=== PATIENT | female | born 1960 | race Caucasian/White ===

== ENCOUNTER 2021-10-24 00:44 | Inpatient (IN) | payer OTHER ==
[~2021-10-24] VITALS: Ht 154.9 cm; Wt 49.4 kg
--- NOTE | 2021-10-24 00:50 | NUR ---
XRAY AT BEDSIDE
--- NOTE | 2021-10-24 01:20 | NUR ---
PT [id number] S/P FALL C/O OF SEVERE PAIN LEFT HIP. PER PT FELL GETTING UP FROM RESTROOM. PT ON MONITOR, REMAINS IN BED 2
--- NOTE | 2021-10-24 01:25 | NUR ---
PT IS ESRD ON DIALYSIS MWF. HD ACCESS NOTED ON RIGHT THIGH. PT HAS OLD HD ACESS, NURY
[2021-10-24] MEDS ORDERED: MORPHINE SULFATE INJ 2 MG/ML DISP.SYRIN IM ONE (01:30)
--- NOTE | 2021-10-24 01:30 | NUR ---
XRAY AT BEDSIDE
[2021-10-24] MEDS ORDERED: MORPHINE SULFATE INJ 4 MG/ML DISP.SYRIN ONE ×2 (01:47→05:29)
--- NOTE | 2021-10-24 02:02 | NUR ---
LEFT WRIST #20 ESTABLISHED
[2021-10-24 02:56] LABS: BASOPHILS % (AUTO) 0.4 % (0.0-2.0); EOSINOPHILS % (AUTO) 0.4 % (0.0-6.0); HEMATOCRIT 35 % (33-45); HEMOGLOBIN 11.9 g/dL (11.5-14.8); LYMPHOCYTES # (AUTO) 0.5 K/uL (0.8-4.8); MEAN CORPUSCULAR HGB CONC 34 g/dl (31.0-36.0); MEAN CORPUSCULAR VOLUME 98 fL (82-100); MONOCYTES # (AUTO) 0.2 K/uL (0.1-1.30); MONOCYTES % (AUTO) 3.7 % (2.0-12.0); NEUTROPHILS # (AUTO) 5.2 K/uL (1.8-8.9); NEUTROPHILS % (AUTO) 87.5 % (43.0-81.0); PLATELET COUNT (AUTO) 166 K/uL (150-450); RED BLOOD CELL COUNT(AUTO) 3.63 MIL/uL (4.0-5.2); WHITE BLOOD COUNT (AUTO) 5.9 K/uL (4.3-11.0)
[2021-10-24 03:23] LABS: CALCIUM, SERUM 9.5 mg/dL (8.5-10.1); CREATININE 5.8 mg/dL (0.6-1.3); POTASSIUM 5.1 mmol/L (3.5-5.1)
[2021-10-24 03:26] LABS: ALBUMIN 4.1 g/dL (3.4-5.0); BILIRUBIN,DIRECT 0.1 mg/dL (0.0-0.2); BILIRUBIN,TOTAL 0.4 mg/dL (0.2-1.0); TOTAL PROTEIN, SERUM 8.2 g/dL (6.4-8.2)
[2021-10-24] MEDS ORDERED: Z GUARD REMEDY 4 OZ OINT TP PRN (04:30)
[2021-10-24] MEDS ORDERED: ONDANSETRON HCL/PF 4 MG/2 ML VIAL IVP PRN (04:30)
[2021-10-24] MEDS: MORPHINE SULFATE INJ 2 MG/ML DISP.SYRIN IV PRN ×5 (05:30→23:42)
--- NOTE | 2021-10-24 06:27 | NUR ---
DAUGHTER WOULD LIKE TO BE INFORMED IF SX OCCURS. MIKI [phone] REQUESTS TO BE CALLED BEFORE ANY CONSENTS ARE SIGNED/PROCEDURES OCCUR
--- NOTE | 2021-10-24 07:38 | NUR ---
THE PATIENT IS RECEIVED IN ER BED #2. ALERT AND ORIENTED X4. IN ROOM AIR AND DENIES SOB. RESPIRATION REGULAR AND UNLABORED. CONTINUE TO MONITOR THE PATIENT.
[2021-10-24] MEDS ORDERED: CALC667C6 PO (08:01)
[2021-10-24] MEDS ORDERED: B/P MED (08:01)
--- NOTE | 2021-10-24 08:16 | NUR ---
NURSING SUP GAVE 324-1.
--- NOTE | 2021-10-24 08:16 | NUR ---
ROOM 324-1
--- NOTE | 2021-10-24 08:27 | NUR ---
REPORT GIVEN TO MYLES ROSE OF MS UNIT
--- NOTE | 2021-10-24 08:35 | NUR ---
PT TRANSPORTED TO ROOM [facility] ACLS PROTOCOL
--- NOTE | 2021-10-24 08:40 | NUR ---
Patient arrived via gurney at 08:40am, FROM er. Patient AO X 4, able to make needs known, can follow simple commands, no apparent distress noted, breathing even and unlabored. Admitting hospitalist made aware of the patient's arrival. Patient admitting diagnosis left femoral neck fracture. Patient's vital signs within normal limits, no complained of facial numbness or weakness, no extremity numbness or weakness at this time. Skin intact, warm to touch, no pallor or cyanosis noted. Patient was noted to have dialysis site on her right thigh, covered with dry dressings, no s/s of infection, no blood noted in the dressing, no unusual odor noted, also has old dialysis site on her right upper arm, patient preferred not to have photos taken at this time, explained risks and benefits thrice and explained hospital protocol, still refused, respected patient's wishes. Patient oriented with use of call lights, use of bed control, use of telephone and tv control, also introduces FIBER OPTIC ASSEMBLER and RN assigned for today, verbalized understanding and gratitude. All belongings written in the inventory list. All needs attended, kept clean and dry, call light left within reach, safety precautions in place, brakes locked, side rails up X 2, will monitor closely for any changes.
[2021-10-24] MEDS ORDERED: PANTOPRAZOLE 40 MG VIAL IV SCH (09:00)
--- NOTE | 2021-10-24 15:23 | NUR ---
Received a phone order from Dr. Dylan Moreno orders as follows: obtain a consent for left hip hemiarthroplasty possible open reduction internal fixation of left femur, resume renal diet and NPO post midnight of 10/25/21, orders noted and carried out, consents signed by patient and daughter, consents filed in the patient's chart.
[2021-10-24 16:13] VITALS: BP 136/70
[2021-10-24] MEDS: BLOOD SUGAR DIAGNOSTIC 1 EACH STRIP IN SCH ×2 (16:58→22:20)
--- NOTE | 2021-10-24 18:30 | NUR ---
MS RN NOTES RECEIVED PATIENT IN BED AWAKE. DAUGHTER BEDSIDE. NO PAIN NOTED. NO RESPIRATORY DISTRESS NOTED. ALERT AMND ORIENTED TIMES 4 . TRISTANIAN SPEAKING. LEFT HIP FRACTURE. IV ACCES ON THE LEFT HAND 20 INTACT. AV FISTULA ON THE RIGHT FEMORAL INTACT. SAFETY PRECAUTIONS IN PLACE. BED IN THE LOWEST POSITION AND LOCKED. SIDE RAILS TIMES 2 UP. BED AND TABLE WITHIN REACH. WILL CONTINUE TO MONITOR.
--- NOTE | 2021-10-24 18:44 | NUR ---
RN CLOSING NOTES Patient lying in bed, AO X 4, no SOB, breathing even and unlabored, no apparent distress noted. Pain medications given per MD order as needed when non pharmacological measures ineffective. Patient repositioned frequently, kept clean and dry, frequent visual check rendered, all needs attended, call light left within reach, safety precautions in place, brakes locked, side rails up X 2, will endorse to next shift for continuity of care.
[2021-10-24 20:00] VITALS: BP 139/72
[2021-10-25] MEDS: MORPHINE SULFATE INJ 2 MG/ML DISP.SYRIN IV PRN ×4 (05:43→19:37)
[2021-10-25] MEDS: BLOOD SUGAR DIAGNOSTIC 1 EACH STRIP IN SCH ×4 (05:47→22:17)
--- NOTE | 2021-10-25 06:27 | NUR ---
MS RN CLOSING NOTES PATIENT IN BED AWAKE. NO RESPIRATORY DISTRESS NOTED. ALERT AMND ORIENTED TIMES 4 . PALESTINIAN SPEAKING. LEFT HIP FRACTURE. IV ACCES ON THE LEFT HAND 20 INTACT. AV FISTULA ON THE RIGHT FEMORAL INTACT.ALL DUE MEDS GIVEN ORDERED. SAFETY PRECAUTIONS IN PLACE. BED IN THE LOWEST POSITION AND LOCKED. SIDE RAILS TIMES 2 UP. BED AND TABLE WITHIN REACH. WILL ENDORSE FOR ANDRES TO INCOMING SHIFT.
[2021-10-25 07:24] LABS: BASOPHILS % (AUTO) 0.5 % (0.0-2.0); EOSINOPHILS % (AUTO) 0.3 % (0.0-6.0); HEMATOCRIT 36 % (33-45); HEMOGLOBIN 11.8 g/dL (11.5-14.8); LYMPHOCYTES # (AUTO) 0.5 K/uL (0.8-4.8); LYMPHOCYTES % (AUTO) 10.4 % (20.0-44.0); MEAN CORPUSCULAR HGB CONC 33 g/dl (31.0-36.0); MEAN CORPUSCULAR VOLUME 97 fL (82-100); MONOCYTES # (AUTO) 0.5 K/uL (0.1-1.30); MONOCYTES % (AUTO) 10.4 % (2.0-12.0); NEUTROPHILS # (AUTO) 3.5 K/uL (1.8-8.9); NEUTROPHILS % (AUTO) 78.4 % (43.0-81.0); PLATELET COUNT (AUTO) 176 K/uL (150-450); RED BLOOD CELL COUNT(AUTO) 3.69 MIL/uL (4.0-5.2); WHITE BLOOD COUNT (AUTO) 4.5 K/uL (4.3-11.0)
--- NOTE | 2021-10-25 07:42 | NUR ---
RN OPENING NOTES Patient seen comfortably lying in bed, no SOB, no apparent distress noted, breathing even and unlabored, denies any pain or discomfort at this time, no grimacing. Call light left within reach, safety precautions in place, brakes locked, side rails up X 2, will monitor closely for any changes.
[2021-10-25 08:00] VITALS: BP 148/73
[2021-10-25] MEDS: PANTOPRAZOLE 40 MG TABLET.DR PO SCH (08:43)
[2021-10-25 09:01] LABS: ALBUMIN 3.8 g/dL (3.4-5.0); BILIRUBIN,TOTAL 0.7 mg/dL (0.2-1.0); CALCIUM, SERUM 10.1 mg/dL (8.5-10.1); CREATININE 4.1 mg/dL (0.6-1.3); MAGNESIUM 3.1 mg/dL (1.8-2.4); PHOSPHORUS 4.8 mg/dL (2.5-4.9); POTASSIUM 4.7 mmol/L (3.5-5.1); TOTAL PROTEIN, SERUM 8.1 g/dL (6.4-8.2)
[2021-10-25 16:00] VITALS: BP 144/76
--- NOTE | 2021-10-25 18:24 | NUR ---
RN CLOSING NOTES Patient lying in bed, no apparent distress noted, respirations even and unlabored, no SOB. All due medications given per MD order, tolerating well. No s/s of hypo or hyperglycemia, no tremors, no change in level of consciousness. Pain medications given per MD order as needed when non pharmacological measures ineffective. SCD pumps in place and working well. Patient repositioned frequently, kept clean and dry, frequent visual check rendered, all needs attended, , safety precautions in place, brakes locked, side rails up X 2, call light left within reach will endorse to next shift for continuity of care.
[2021-10-25 20:59] VITALS: BP 146/75
[2021-10-26] MEDS: MORPHINE SULFATE INJ 2 MG/ML DISP.SYRIN IV PRN ×4 (04:58→21:13)
[2021-10-26] MEDS: BLOOD SUGAR DIAGNOSTIC 1 EACH STRIP IN SCH ×4 (06:48→22:32)
[2021-10-26 06:54] LABS: BASOPHILS % (AUTO) 0.6 % (0.0-2.0); EOSINOPHILS % (AUTO) 1.1 % (0.0-6.0); HEMATOCRIT 33 % (33-45); HEMOGLOBIN 11.2 g/dL (11.5-14.8); LYMPHOCYTES # (AUTO) 0.6 K/uL (0.8-4.8); LYMPHOCYTES % (AUTO) 14.6 % (20.0-44.0); MEAN CORPUSCULAR HGB CONC 34 g/dl (31.0-36.0); MEAN CORPUSCULAR VOLUME 96 fL (82-100); MONOCYTES # (AUTO) 0.4 K/uL (0.1-1.30); MONOCYTES % (AUTO) 11.1 % (2.0-12.0); NEUTROPHILS # (AUTO) 2.8 K/uL (1.8-8.9); NEUTROPHILS % (AUTO) 72.6 % (43.0-81.0); PLATELET COUNT (AUTO) 182 K/uL (150-450); RED BLOOD CELL COUNT(AUTO) 3.47 MIL/uL (4.0-5.2); WHITE BLOOD COUNT (AUTO) 3.8 K/uL (4.3-11.0)
--- NOTE | 2021-10-26 06:57 | NUR ---
RN NOTES PT AWAKE/ALERT, ABLE TO MAKE NEEDS KNOWN. NO ACUTE EVENTS DURING THE NIGHT. PAIN WELL CONTROLLED WITH PRN MORPHINE. IV ACCESS: L-WRIST #20G INTACT/PATENT/FLUSHES WELL. HD ACCESS ON R-THIGH WITH GOOD BRUIT AND THRILL. HANDLED PT GENTLY DURING CARE. SAFETY MEASURES IN PLACE. ALL NEEDS ATTENDED TO.
[2021-10-26 07:25] LABS: CREATININE 5.5 mg/dL (0.6-1.3); MAGNESIUM 3.1 mg/dL (1.8-2.4); PHOSPHORUS 5.6 mg/dL (2.5-4.9); POTASSIUM 5.3 mmol/L (3.5-5.1)
[2021-10-26] MEDS: PANTOPRAZOLE 40 MG TABLET.DR PO SCH (07:29)
--- NOTE | 2021-10-26 07:30 | NUR ---
MS RN OPENING NOTES RECEIVED PATIENT IN BED, AWAKE, NOT IN ANY FORM OF ACUTE DISTRESS NOTED. ON ROOM AIR TOLERATING WELL. IV ACCESS ON LEFT WRIST G#20, PATENT, INTACT NAD FLUSHES WELL. WITH HD CATH SITE NOTED ON RIGHT THIGH COVERED WITH DRY AND INTACT DRESSING. NOTED WITH NURY OLD AV SHUNT. SAFETY PRECAUTIONS IN PLACE: BED ON LOWEST LOCKED POSITION, SIDE RAILS UP X 2, CALL LIGHT WITHIN EASY REACH. WILL CONTINUE TO MONITOR ACCORDINGLY.
[2021-10-26 08:00] VITALS: BP 141/79
[2021-10-26 08:48] VITALS: BP 146/79
[2021-10-26] MEDS: ENOXAPARIN SODIUM 30 MG/0.3 ML DISP.SYRIN SQ SCH (09:54)
--- NOTE | 2021-10-26 11:22 | NUR ---
RN NOTES PATIENT HAS C/O LEFT HIP PAIN WITH PAIN SCALE OF 9/10. DUE MORPHINE GIVEN ORDERED.
[2021-10-26 15:49] VITALS: BP 150/75
--- NOTE | 2021-10-26 17:04 | NUR ---
RN NOTES S/P HEMODIALYSIS, PATIENT ABLE TO TOLERATE PROCEDURE WELL. WILL CONTINUE TO MONITOR.
--- NOTE | 2021-10-26 18:30 | NUR ---
MS RN CLOSING NOTES PATIENT IN BED, AWAKE, NOT IN ANY FORM OF ACUTE DISTRESS NOTED. ON ROOM AIR TOLERATING WELL. IV ACCESS ON LEFT WRIST G#20, PATENT, INTACT AND FLUSHES WELL. WITH HD CATH SITE NOTED ON RIGHT THIGH COVERED WITH DRY AND INTACT DRESSING. NOTED WITH NURY OLD AV SHUNT. SAFETY PRECAUTIONS IN PLACE: BED ON LOWEST LOCKED POSITION, SIDE RAILS UP X 2, CALL LIGHT WITHIN EASY REACH. DUE MEDS GIVEN ORDERED. ALL NEEDS ATTENDED AND MET. WILL ENDORSE TO ONCOMING SHIFT FOR ANDRES.
--- NOTE | 2021-10-26 19:45 | NUR ---
MS RN OPENING NOTE PATIENT AWAKE IN BED WITH DAUGHTER AT BEDSIDE, ALERT/ORIENTED X 4. PT STABLE ON RA, NO S/S OF DISTRESS OR SOB NOTED, BREATHING EVEN AND UNLABORED. IV ACCESS ON LEFT WRIST #20G INTACT AND FLUSHING WELL. HD CATH ON RIGHT THIGH NOTED, DRESSING CLEAN, DRY AND INTACT. NURY OLD AV SHUNT NOTED WELL. SAFETY MEASURES IN PLACE: CALL LIGHT WITHIN REACH, SIDE RAILS UP X 2, BED LOCKED IN LOW POSITION, BED ALARM ON. WILL CONTINUE TO MONITOR PATIENT
[2021-10-26 20:00] VITALS: BP 96/61
--- NOTE | 2021-10-26 21:15 | NUR ---
MS RN NOTE PATIENT REPORTING 9/10 LEFT HIP PAIN, MORPHINE 4 MG IV GIVEN ORDERED. WILL CONTINUE TO MONITOR PATIENT
[2021-10-27] MEDS: HYDROCODONE/APAP 5/325MG TABLET PO PRN ×2 (00:10→18:14)
--- NOTE | 2021-10-27 00:10 | NUR ---
MS RN NOTE PATIENT REPORTING 10/10 LEFT HIP PAIN EVEN THOUGH MORPHINE 4 MG IV ALREADY GIVEN AND NOT DUE YET. INFORMED SUMIT MEIER DNP, WITH NEW ORDER FOR NORCO 5-325 MG PO Q4H PRN. MEDICATION GIVEN ORDERED. WILL CONTINUE TO MONITOR PATIENT
[2021-10-27] MEDS: MORPHINE SULFATE INJ 2 MG/ML DISP.SYRIN IV PRN ×4 (02:10→20:21)
--- NOTE | 2021-10-27 03:54 | NUR ---
MS RN NOTE EARL FROM [facility] CALLED TO CONFIRM IF PATIENT STILL NEEDED HIGHER LEVEL OF CARE. PER EARL THERE ARE STILL NO AVAILABLE BEDS AND PATIENT NEEDS TO GET FINANCIAL CLEARANCE AND AN ACCEPTING DOCTOR. PER EARL, SINCE IT'S THE WEEKEND FINANCIAL CLEARANCE CAN'T BE DONE UNTIL FRIDAY
[2021-10-27 07:32] LABS: BASOPHILS % (AUTO) 0.9 % (0.0-2.0); EOSINOPHILS % (AUTO) 1.5 % (0.0-6.0); HEMATOCRIT 33 % (33-45); HEMOGLOBIN 10.8 g/dL (11.5-14.8); LYMPHOCYTES # (AUTO) 0.6 K/uL (0.8-4.8); LYMPHOCYTES % (AUTO) 20.4 % (20.0-44.0); MEAN CORPUSCULAR HGB CONC 33 g/dl (31.0-36.0); MEAN CORPUSCULAR VOLUME 96 fL (82-100); MONOCYTES # (AUTO) 0.4 K/uL (0.1-1.30); MONOCYTES % (AUTO) 13.3 % (2.0-12.0); NEUTROPHILS # (AUTO) 1.9 K/uL (1.8-8.9); NEUTROPHILS % (AUTO) 63.9 % (43.0-81.0); PLATELET COUNT (AUTO) 183 K/uL (150-450); RED BLOOD CELL COUNT(AUTO) 3.37 MIL/uL (4.0-5.2)
[2021-10-27 07:38] LABS: CREATININE 4.4 mg/dL (0.6-1.3); MAGNESIUM 2.8 mg/dL (1.8-2.4); PHOSPHORUS 5.5 mg/dL (2.5-4.9); POTASSIUM 4.6 mmol/L (3.5-5.1)
[2021-10-27] MEDS: BLOOD SUGAR DIAGNOSTIC 1 EACH STRIP IN SCH ×4 (07:38→22:56)
[2021-10-27] MEDS: INSULIN REGULAR, HUMAN 100 UNIT/ML 3 ML VIAL SQ PRN ×3 (07:40→22:57)
[2021-10-27 08:00] VITALS: BP 126/70
--- NOTE | 2021-10-27 08:09 | NUR ---
RN OPENING NOTES PATIENT AWAKE IN BED RESTING, AWAKE. A/O X4. NO S/S OF PAIN NOTED AT THIS TIME. ON ROOM AIR, NO DISTRESS OR SHORTNESS OF BREATH NOTED. IV L WRIST #20G, INTACT AND PATENT. FALL AND SAFETY MEASURES IN PLACE, BED ALARM ON, BED IN LOW AND LOCK POSITION, CALL LIGHT AND TABLE WITHIN EASY REACH, SIDE RAILS UP X2. WILL CONTINUE TO MONITOR.
[2021-10-27] MEDS: PANTOPRAZOLE 40 MG TABLET.DR PO SCH (09:04)
[2021-10-27] MEDS: ENOXAPARIN SODIUM 30 MG/0.3 ML DISP.SYRIN SQ SCH (09:06)
[2021-10-27 16:00] VITALS: BP 111/72
[2021-10-27 20:00] VITALS: BP 132/71
--- NOTE | 2021-10-27 20:29 | NUR ---
RECEIVED PATIENT IN BED, ALERT/ORIENTED X4, ROOM AIR, COMPLAINING OF LEFT HIP PAIN, 10/10, GIVEN MORPHINE 4 MG IV, RIGHT FEMORAL AV FISTULA, DAUGHTER AT THE BEDSIDE, KEPT SAFE, WILL CONTINUE TO MONITOR.
[2021-10-28] MEDS: HYDROCODONE/APAP 5/325MG TABLET PO PRN ×4 (00:56→22:06)
[2021-10-28] MEDS: MORPHINE SULFATE INJ 2 MG/ML DISP.SYRIN IV PRN ×5 (03:31→23:49)
--- NOTE | 2021-10-28 06:00 | NUR ---
RN NOTES ALERT/ORIENTED X4, ROOM AIR, ALGERIAN SPEAKING ONLY, NO DISTRESS, LEFT FEMORAL NECK FRACTURE, PAIN MEDICATION ROUND THE CLOCK, ALTERNATING MORPHINE 4 MG IV AND NORCO 1 TAB WITH ADEQUATE RELIEF, RIGHT GROIN AV FISTULA, LAST HD 10/26/21 2 L OUTPUT, NO SURGERY HERE, WILL NEED TO TRANSFER TO [facility], AWAITING BED AND FINANCIAL CLEARANCE, DAUGHTER IS UPDATED.
[2021-10-28] MEDS: BLOOD SUGAR DIAGNOSTIC 1 EACH STRIP IN SCH ×4 (06:37→22:11)
[2021-10-28] MEDS: INSULIN REGULAR, HUMAN 100 UNIT/ML 3 ML VIAL SQ PRN (06:38)
[2021-10-28 07:47] LABS: HEMATOCRIT 32 % (33-45); HEMOGLOBIN 10.6 g/dL (11.5-14.8); LYMPHOCYTES # (AUTO) 0.7 K/uL (0.8-4.8); LYMPHOCYTES % (AUTO) 20.8 % (20.0-44.0); MEAN CORPUSCULAR HGB CONC 33 g/dl (31.0-36.0); MEAN CORPUSCULAR VOLUME 97 fL (82-100); MONOCYTES # (AUTO) 0.4 K/uL (0.1-1.30); MONOCYTES % (AUTO) 11.9 % (2.0-12.0); NEUTROPHILS % (AUTO) 63.3 % (43.0-81.0); PLATELET COUNT (AUTO) 203 K/uL (150-450); WHITE BLOOD COUNT (AUTO) 3.2 K/uL (4.3-11.0)
[2021-10-28 08:00] VITALS: BP 136/75
[2021-10-28 08:06] LABS: CALCIUM, SERUM 9.4 mg/dL (8.5-10.1); CREATININE 5.9 mg/dL (0.6-1.3); MAGNESIUM 3.1 mg/dL (1.8-2.4); PHOSPHORUS 5.9 mg/dL (2.5-4.9); POTASSIUM 4.8 mmol/L (3.5-5.1)
[2021-10-28] MEDS: PANTOPRAZOLE 40 MG TABLET.DR PO SCH (08:18)
[2021-10-28 10:17] LABS: IRON, SERUM 31 ug/dl (50-175); TOTAL IRON BINDING CAPACITY 141 ug/dl (250-450)
[2021-10-28] MEDS: ENOXAPARIN SODIUM 30 MG/0.3 ML DISP.SYRIN SQ SCH (10:29)
[2021-10-28 10:32] LABS: FERRITIN 869 ng/mL (8-388)
[2021-10-28 16:00] VITALS: BP 114/65
--- NOTE | 2021-10-28 19:41 | NUR ---
RN CLOSING NOTES PATIENT AWAKE IN BED RESTING, AWAKE. A/O X4. NO S/S OF PAIN NOTED AT THIS TIME. ON ROOM AIR, NO DISTRESS OR SHORTNESS OF BREATH NOTED. IV L WRIST #20G, INTACT AND PATENT. FALL AND SAFETY MEASURES IN PLACE, BED ALARM ON, BED IN LOW AND LOCK POSITION, CALL LIGHT AND TABLE WITHIN EASY REACH, SIDE RAILS UP X2. WILL ENDORSE TO MARKETING OPERATIONS ANALYST.
[2021-10-28 20:00] VITALS: BP 119/89
[2021-10-29] MEDS: MORPHINE SULFATE INJ 2 MG/ML DISP.SYRIN IV PRN ×4 (04:07→20:33)
--- NOTE | 2021-10-29 06:00 | NUR ---
Patient has been A&Ox4 and stable overnight. Pt. is able to make needs known. Pain managed well with PRN morphine and [place]. L wrist #20G patent and intact. No s/s of hypo or hyperglycemic reactions noted. Safety measures in place.
[2021-10-29 06:29] LABS: BASOPHILS % (AUTO) 1.3 % (0.0-2.0); EOSINOPHILS % (AUTO) 3.2 % (0.0-6.0); HEMATOCRIT 33 % (33-45); HEMOGLOBIN 10.8 g/dL (11.5-14.8); LYMPHOCYTES # (AUTO) 0.7 K/uL (0.8-4.8); LYMPHOCYTES % (AUTO) 21.7 % (20.0-44.0); MEAN CORPUSCULAR HGB CONC 33 g/dl (31.0-36.0); MEAN CORPUSCULAR VOLUME 96 fL (82-100); MONOCYTES # (AUTO) 0.4 K/uL (0.1-1.30); MONOCYTES % (AUTO) 13.3 % (2.0-12.0); NEUTROPHILS # (AUTO) 1.8 K/uL (1.8-8.9); NEUTROPHILS % (AUTO) 60.5 % (43.0-81.0); PLATELET COUNT (AUTO) 227 K/uL (150-450)
[2021-10-29] MEDS: BLOOD SUGAR DIAGNOSTIC 1 EACH STRIP IN SCH ×4 (06:39→22:07)
[2021-10-29 07:06] LABS: CALCIUM, SERUM 10.1 mg/dL (8.5-10.1); CREATININE 4.1 mg/dL (0.6-1.3); MAGNESIUM 3.1 mg/dL (1.8-2.4); POTASSIUM 4.6 mmol/L (3.5-5.1)
--- NOTE | 2021-10-29 08:06 | NUR ---
MS RN OPENING NOTES RECEIVED PATIENT IN BED, AWAKE, A/O X4, MOSTLY MALAY SPEAKING. PATIENT ON ROOM AIR; BREATHING EVEN AND UNLABORED AT THIS TIME; NO SOB NOTED. COMPLAINING OF PAIN AND ASKING FOR PAIN MEDICATION. IV ACCESS AT L WRIST G #20 PRESENT AND INTACT; HL. AVF PRESENT AT R FEMORAL SITE. SAFETY PRECAUTIONS IN PLACE; BED IN LOW POSITION AND LOCKED, RAILS UP X2, CALL LIGHT WITHIN REACH. WILL CONTINUE TO MONITOR PATIENT.
[2021-10-29] MEDS: PANTOPRAZOLE 40 MG TABLET.DR PO SCH (08:29)
[2021-10-29] MEDS: ENOXAPARIN SODIUM 30 MG/0.3 ML DISP.SYRIN SQ SCH (08:41)
[2021-10-29 09:20] VITALS: BP 140/64
[2021-10-29] MEDS: HYDROCODONE/APAP 5/325MG TABLET PO PRN ×3 (10:45→22:02)
--- NOTE | 2021-10-29 14:30 | NUR ---
MS RN NOTES PATIENT COMPLAINING OF LEG PAIN 8 OUT OF 10 AND REQUESTING PAIN MEDICATION. PRN MORPHINE ADMINISTERED. WILL REASSESS.
[2021-10-29 16:00] VITALS: BP 127/71
--- NOTE | 2021-10-29 18:52 | NUR ---
MS RN CLOSING NOTES PATIENT REMAINS IN BED, AWAKE, A/O X4, MOSTLY BULGARIAN SPEAKING. PATIENT ON ROOM AIR; BREATHING EVEN AND UNLABORED AT THIS TIME; NO SOB NOTED. PAIN TREATED THROUGHOUT THE DAY WITH PRN MORPHINE AND NORCO. IV ACCESS AT L WRIST G #20 PRESENT AND INTACT; HL. AVF PRESENT AT R FEMORAL SITE. ALL NEEDS ATTENDED DURING THE DAY. SAFETY PRECAUTIONS IN PLACE; BED IN LOW POSITION AND LOCKED, RAILS UP X2, CALL LIGHT WITHIN REACH. WILL ENDORSE TO CANNON FIRE DIRECTION SPECIALIST NURSE FOR ANDRES.
--- NOTE | 2021-10-29 19:48 | NUR ---
MS RN OPENING NOTES RECEIVED PT IN BED, AWAKE, DAUGHTER AT BEDSIDE. AOx4, ABLE TO MAKE NEEDS KNOWN. ON RA AND TOLERATING WELL. NO SOB NOTED. NO S/SX OF RESPIRATORY DISTRESS NOTED. IV ACCESS IN L WRIST #20. IV IS INTACT, PATENT, AND FLUSHING WELL. AV FISTULA IN R FEMORAL. SAFETY PRECAUTIONS IN PLACE: BED IN LOWEST, LOCKED POSITION, SIDERAILS UPx2, AND BRAKES ON. TABLE AND CALL LIGHT WITHIN REACH. WILL CONTINUE TO MONITOR.
[2021-10-29 20:35] VITALS: BP 129/65
[2021-10-30] MEDS: MORPHINE SULFATE INJ 2 MG/ML DISP.SYRIN IV PRN ×3 (00:39→13:59)
[2021-10-30] MEDS: HYDROCODONE/APAP 5/325MG TABLET PO PRN (02:06)
--- NOTE | 2021-10-30 02:15 | NUR ---
ADMINISTERED MORPHINE @2038. VS WNL. WILL CONTINUE TO MONITOR. ADMINISTERED NORCO @2201. VS WNL. WILL CONTINUE TO MONITOR. ADMINISTERED MORPHINE @9. VS WNL. WILL CONTINUE TO MONITOR. ADMINISTERED NORCO @0206. VS WNL. WILL CONTINUE TO MONITOR.
--- NOTE | 2021-10-30 04:29 | NUR ---
[facility] CALLED AT APPROXIMATELY 0245, DEYSI ASKED FOR UPDATE. STATED THAT PATIENT NEEDS FINANCIAL CLEARANCE AND NEEDS AN ATTENDING DOCTOR.
[2021-10-30] MEDS: BLOOD SUGAR DIAGNOSTIC 1 EACH STRIP IN SCH ×4 (06:36→21:40)
--- NOTE | 2021-10-30 06:41 | NUR ---
MS RN CLOSING NOTES PT IN BED, AWAKE. AOx4, [place] SPEAKING, ABLE TO MAKE NEEDS KNOWN. ON RA AND TOLERATING WELL. NO SOB NOTED. NO S/SX OF RESPIRATORY DISTRESS NOTED. IV ACCESS IN L WRIST #20. IV IS INTACT, PATENT, AND FLUSHING WELL. AV FISTULA IN R FEMORAL. ALL NEEDS MET. PT KEPT CLEAN AND DRY. TREATED PAIN THROUGHOUT SHIFT. SAFETY PRECAUTIONS IN PLACE: BED IN LOWEST, LOCKED POSITION, SIDERAILS UPx2, AND BRAKES ON. TABLE AND CALL LIGHT WITHIN REACH. WILL ENDORSE TO ONCOMING SHIFT FOR ANDRES.
[2021-10-30 06:54] LABS: BASOPHILS % (AUTO) 1.6 % (0.0-2.0); EOSINOPHILS % (AUTO) 3.9 % (0.0-6.0); HEMATOCRIT 34 % (33-45); HEMOGLOBIN 11.2 g/dL (11.5-14.8); LYMPHOCYTES # (AUTO) 0.6 K/uL (0.8-4.8); MEAN CORPUSCULAR HGB CONC 33 g/dl (31.0-36.0); MEAN CORPUSCULAR VOLUME 96 fL (82-100); MONOCYTES # (AUTO) 0.3 K/uL (0.1-1.30); MONOCYTES % (AUTO) 12.2 % (2.0-12.0); NEUTROPHILS # (AUTO) 1.6 K/uL (1.8-8.9); NEUTROPHILS % (AUTO) 59.3 % (43.0-81.0); PLATELET COUNT (AUTO) 240 K/uL (150-450); RED BLOOD CELL COUNT(AUTO) 3.48 MIL/uL (4.0-5.2); WHITE BLOOD COUNT (AUTO) 2.7 K/uL (4.3-11.0)
--- NOTE | 2021-10-30 07:43 | NUR ---
MS RN OPENING NOTES RECEIVED PATIENT IN BED, AWAKE, A/O X4, MOSTLY TURKISH SPEAKING. PATIENT ON ROOM AIR; BREATHING EVEN AND UNLABORED AT THIS TIME; NO SOB NOTED. COMPLAINING OF PAIN. IV ACCESS AT L WRIST G #20 PRESENT AND INTACT; HL. AVF PRESENT AT R FEMORAL SITE. SAFETY PRECAUTIONS IN PLACE; BED IN LOW POSITION AND LOCKED, RAILS UP X2, CALL LIGHT WITHIN REACH. WILL CONTINUE TO MONITOR PATIENT.
[2021-10-30 08:03] LABS: CREATININE 5.7 mg/dL (0.6-1.3); POTASSIUM 5.3 mmol/L (3.5-5.1)
[2021-10-30 08:26] VITALS: BP 155/79
--- NOTE | 2021-10-30 08:28 | NUR ---
MS RN NOTES PATIENT COMPLAINING OF HIP PAIN 8 OUT OF 10; REQUESTING PAIN MEDICATION. PRN MORPHINE ADMINISTERED. WILL REASSESS.
[2021-10-30] MEDS: PANTOPRAZOLE 40 MG TABLET.DR PO SCH (08:30)
[2021-10-30] MEDS: ENOXAPARIN SODIUM 30 MG/0.3 ML DISP.SYRIN SQ SCH (08:31)
[2021-10-30] MEDS ORDERED: BUPIVACAINE 0.5 % PF 150 MG/30 ML VIAL ONE (13:07)
[2021-10-30] MEDS ORDERED: VANCOMYCIN 1 GM VIAL ONE (13:07)
[2021-10-30] MEDS ORDERED: POLYMYXIN B SULFATE 500,000 UNITS ONE (13:07)
[2021-10-30] MEDS ORDERED: ANESTHESIA TRAY IN PYXIS 1 EA TRAY MC ONE (13:16)
[2021-10-30 15:32] VITALS: BP 140/86
[2021-10-30] MEDS ORDERED: FENTANYL PF 250MCG/5ML AMPUL ONE (15:37)
[2021-10-30] MEDS ORDERED: MIDAZOLAM HCL 2 MG/2ML VIAL ONE (15:38)
[2021-10-30] MEDS ORDERED: HYDROMORPHONE INJ 2 MG/ML DISP.SYRIN ONE (15:38)
[2021-10-30] MEDS ORDERED: ROCURONIUM BROMIDE 50 MG/5 ML ONE (15:39)
[2021-10-30] MEDS ORDERED: FAMOTIDINE/PF INJ 20 MG/2 ML VIAL IV ONE (15:39)
--- NOTE | 2021-10-30 16:20 | NUR ---
MS RN NOTES PATIENT PICKED UP AND TAKEN TO OR FOR L HIP SURGERY
--- NOTE | 2021-10-30 16:40 | NUR ---
MS RN NOTES [id number] ACCU-CHECK NOT DONE. PATIENT IN SURGERY.
[2021-10-30] MEDS ORDERED: DEXTROSE 50%-WATER 50 ML DISP.SYRIN ONE (18:47)
--- NOTE | 2021-10-30 18:57 | NUR ---
MS RN NOTES PATIENT STILL IN OR. WILL ENDORSE TO BINDER ROLLER NURSE.
[2021-10-30] MEDS ORDERED: HYDROMORPHONE 1 MG/1 ML DISP.SYRIN ONE (19:00)
--- NOTE | 2021-10-30 19:15 | NUR ---
PATIENT STILL IN OR. NOT PRESENT IN UNIT.
[2021-10-30] MEDS ORDERED: FENTANYL PF 100MCG/2ML AMPUL ONE (19:22)
[2021-10-30] MEDS ORDERED: HYDROCODONE/APAP 10/325MG TABLET PO PRN (19:30)
[2021-10-30 20:00] VITALS: BP 85/51
--- NOTE | 2021-10-30 20:25 | NUR ---
RN NOTE PATIENT BACK FROM , PATIENT MOSTLY FAROESE SPEAKING. PATIENT HAS L HIP DRESSING, C/D/I S/P L HIP HEMIARTHROPLASTY WITH DR. FLORES. NOTED MILD BLEEDING ON DRESSING. PATIENT HAS ABDUCTION PILLOWS ON. REPORTS SEVERE PAIN. BP 86/57 TEMP 97.8, HR 113 ST ON TELE, RR 20. UNABLE TO GIVE PAIN MEDICINE AT THIS TIME D/T UNSTABLE VS. WILL MONITOR PATIENT VS. PATIENT'S IV ACCESS PATENT AND INTACT. DAUGHTER AT BEDSIDE. NOT IN ANY APPARENT DISTRESS, WAS ABLE TO TITRATE PATIENT DOWN TO 2LPM 100 O2 SAT, WILL CONTINUE TO TITRATE. SAFETY MEASURES IN PLACE: BED LOCKED AND IN LOWEST POSITION, CALL LIGHT WITHIN REACH, SIDE RAILS UP. WILL MONITOR PATIENT CLOSELY.
[2021-10-30] MEDS: ANCEF 1 GM/50 ML D5W IV SCH (21:39)
[2021-10-30] MEDS: IV 1/2NS 1000 ML 1,000 ML IV PRN (21:40)
--- NOTE | 2021-10-30 22:00 | NUR ---
BD 99 MG/DL. WILL MONITOR FOR HYPOGLYCEMIA, NO COVERAGE GIVEN AT THIS TIME.
[2021-10-30] MEDS ORDERED: IV NS 0.9% 500 ML IV ONE (23:00)
--- NOTE | 2021-10-30 23:04 | NUR ---
500 ML NS BOLUS STARTED. LATEST BP 80/56
[2021-10-30 23:18] LABS: BASOPHILS % (AUTO) 0.4 % (0.0-2.0); EOSINOPHILS % (AUTO) 0.1 % (0.0-6.0); HEMATOCRIT 34 % (33-45); HEMOGLOBIN 11.3 g/dL (11.5-14.8); LYMPHOCYTES # (AUTO) 0.1 K/uL (0.8-4.8); LYMPHOCYTES % (AUTO) 2.1 % (20.0-44.0); MEAN CORPUSCULAR HGB CONC 33 g/dl (31.0-36.0); MEAN CORPUSCULAR VOLUME 96 fL (82-100); MONOCYTES % (AUTO) 0.4 % (2.0-12.0); NEUTROPHILS # (AUTO) 6.6 K/uL (1.8-8.9); PLATELET COUNT (AUTO) 224 K/uL (150-450); RED BLOOD CELL COUNT(AUTO) 3.54 MIL/uL (4.0-5.2); WHITE BLOOD COUNT (AUTO) 6.8 K/uL (4.3-11.0)
[2021-10-31] VITALS (7 sets, daily range): BP systolic 76–104; BP diastolic 46–65
[2021-10-31] MEDS: HYDROCODONE/APAP 10/325MG TABLET PO PRN ×2 (00:34→19:34)
--- NOTE | 2021-10-31 00:35 | NUR ---
GINA GIVEN FOR PATIENT'S PAIN, BP STILL ON THE LOW SIDE. Addendum: 10/31/21 at 0452 by SHRADDHA BLANTON RN BP
[2021-10-31] MEDS: ANCEF 1 GM/50 ML D5W IV SCH ×2 (04:28→13:49)
[2021-10-31] MEDS: MORPHINE SULFATE INJ 2 MG/ML DISP.SYRIN IV PRN ×4 (04:59→15:58)
[2021-10-31] MEDS: BLOOD SUGAR DIAGNOSTIC 1 EACH STRIP IN SCH ×4 (06:35→21:38)
--- NOTE | 2021-10-31 07:34 | NUR ---
RN CLOSING NOTE PATIENT IN BED SLEEPING, EASILY AWAKENED. PATIENT IS NOW ON RA, 100% O2 SATURATION. PATIENT ABLE TO MAKE NEEDS KNOWN A/O X 4. PATIENT'S TELE MONITOR READS SR 97 BPM. PATIENT CONTINUES TO HAVE ABDUCTION PILLOW ON AND L SX C/D/1. PATIENT'S R WRIST AND L WRIST IV ACCESS PATIENT AND INTACT, R FEMORAL AV FISTULA BRUIT/THRILL PRESENT. PAIN MANAGED WITH NORCO 10/325 AND MORPHINE 2 MG. BS 108 MG/DL NO S/S OF HYPOGLYCEMIA. SAFETY MEASURES IMPLEMENTED. ALL NEEDS CARRIED OUT. ALL NEEDS MET AND ATTENDED. ENDORSED TO DAY SHIFT NURSE FOR ANDRES.
--- NOTE | 2021-10-31 07:52 | NUR ---
RN OPENING NOTE- PT IN BED ASLEEP/ EASILY AWAKENED. MALAY SPEAKING. PATIENT ON ROOM AIR; BREATHING EVEN AND NONLABORED AT THIS TIME; NO SOB NOTED. NO PAIN NOTED. IV ACCESS AT L WRIST G #20 PRESENT AND INTACT; HL. AVF PRESENT AT R FEMORAL SITE. SAFETY PRECAUTIONS IN PLACE; BED IN LOW POSITION AND LOCKED, RAILS UP X2, CALL LIGHT WITHIN REACH. WILL CONTINUE TO MONITOR PATIENT.
[2021-10-31] MEDS: PANTOPRAZOLE 40 MG TABLET.DR PO SCH (08:49)
[2021-10-31] MEDS: ENOXAPARIN SODIUM 30 MG/0.3 ML DISP.SYRIN SQ SCH (08:53)
[2021-10-31] MEDS ORDERED: EPOETIN ALFA-EPBX 10,000 UNIT/ML VIAL IV ONE (11:00)
[2021-10-31] MEDS: INSULIN REGULAR, HUMAN 100 UNIT/ML 3 ML VIAL SQ PRN ×2 (11:44→17:40)
--- NOTE | 2021-10-31 17:00 | NUR ---
RN NOTE- ACCUCHECK BS- 66. FAMILY GAVE JUICE. NO SX HYPOGLYCEMIA
--- NOTE | 2021-10-31 18:22 | NUR ---
RN NOTE- ARTIFICIAL BREEDING DISTRIBUTOR NOTED ST ELEVATION. STAT EKG ORDERED. DR NEGRETE AWARE. AWAITING RESULTS
--- NOTE | 2021-10-31 18:47 | NUR ---
RN NOTE- DR CHAVEZ NOTIFIED. ORDERED STAT BMP TO CHECK K LEVEL. HD NURSE ON UNIT TO DO HD LATER THIS EVENING, DR CADEN Bates NO NEW ORDERS, MONITOR PT. FORWARD INFO TO .
--- NOTE | 2021-10-31 18:52 | NUR ---
RN NOTE EKG RT BUNDLE BRANCH BLOCK. AWARE
--- NOTE | 2021-10-31 18:53 | NUR ---
RN CLOSING NOTE- PATIENT RESTING QUIETLY. IS ON RA, 100% O2 SATURATION.. PATIENT'S TELE MONITOR READS SR 92 BPM. PATIENT CONTINUES TO HAVE ABDUCTION PILLOW ON AND L SX C/D/1. PATIENT'S R WRIST AND L WRIST IV ACCESS PATIENT AND INTACT, R FEMORAL AV FISTULA BRUIT/THRILL PRESENT. PAIN MANAGED WITH NORCO 10/325 AND MORPHINE 2 MG. SAFETY MEASURES IMPLEMENTED. ALL NEEDS CARRIED OUT. ALL NEEDS MET AND ATTENDED. ENDORSED TO DAY SHIFT NURSE FOR ANDRES.
--- NOTE | 2021-10-31 19:15 | NUR ---
COMMUNITY EDUCATOR NOTES RECEIVED ON BED A/O X4,S/P LEFT HIP HEMIARTHROPLASTY,DRESSING IN PLACE,WITH OLE BLOOD STAIN NOTED.SALINE LOCK RIGHT WRIST INTACT AND PATENT, WELL ON RIGHT WRIST SALINE LOCK, RIGHT FEMORAL AV FISTULA FOR HD ACCESS,OLD LEFT UPPER AV FISTULA NON WORKING FOR HD TREATMENT.FAMILY MEMBER AT BEDSIDE.CALL LIGHT IN REACH,NEEDS ANTICIPATED.
[2021-10-31 19:29] LABS: CALCIUM, SERUM 9.5 mg/dL (8.5-10.1); CREATININE 7.2 mg/dL (0.6-1.3)
[2021-10-31 19:32] LABS: POTASSIUM 7.2 mmol/L (3.5-5.1)
--- NOTE | 2021-10-31 19:34 | NUR ---
DIRECTOR OF STRATEGIC SOURCING NOTES ST-110 ON TELE MONITOR,C/O LEFT HIP PAIN,MEDICATED WITH NORCO 10/325MG,1 TAB PO FOR PAIN 7/10 ON PAIN SCALE.
--- NOTE | 2021-10-31 19:35 | NUR ---
LAY HEALTH ADVOCATE NOTES REPORTED BY LAB,POTASSIUM LEVEL 7.2,DR ROWLAND MADE AWARE WITH NEW ORDER TO GIVE SODIUM BICARBONATE 2 AMPULE IV,ALONG WITH D50 1 AMPULE AND 5 UNITS INSULIN IVP AND KAYEXALATE PO NOTED,WHILE WAITING FOR THE DIALYSIS NURSE.
[2021-10-31] MEDS: SODIUM BICARBONATE SYR 50 MEQ/50 ML DISP.SYRIN ONE ×2 (19:53→20:17)
[2021-10-31] MEDS ORDERED: SODIUM BICARBONATE SYR 50 MEQ/50 ML DISP.SYRIN ONE (19:54)
[2021-10-31] MEDS: DEXTROSE 50%-WATER 50 ML DISP.SYRIN IV PRN (20:10)
--- NOTE | 2021-10-31 20:10 | NUR ---
PROGRAMS MANAGER NOTES ACCU-CHECK BLOOD SUGAR CHECK 46,D50 1 AMPULE GIVEN IV PUSH THIS TIME. INSULIN 5 UNITS IV NOT GIVEN ORDERED BY DR ROWLAND
--- NOTE | 2021-10-31 20:30 | NUR ---
CREDIT REPRESENTATIVE NOTES HEMODIALYSIS NURSE CAME AND STARTED TH TREATMENT THIS TIME WITH BLOOD PRESSURE OF 100/61,PATIENT ALERT,ORIENTED X4.PER HD NURSE NURSE, NO NEED TO GIVE THE SODIUM BICARBONATE SINCE HE WILL START THE TREATMENT ALREADY,ALSO THE INSULIN,DR ROWLAND MADE AWARE AND ITS OK NOT TO GIVE THE SODIUM BICARB AND INSULIN.
--- NOTE | 2021-10-31 20:45 | NUR ---
OFFSET PLATE MAKER NOTES ON THE PROCESS OF HD TREATMENT,BLOOD PRESSURE WAS ON THE LOW SIDE,SBP ON THE 60'S.CHARGE NURSE AWARE,LIQUID SUGAR MELTER AWARE DR HAINES MADE AWARE BY HD NURSE WITH ORDER OK TO TRANSFER TO ICU.DR ROWLAND MADE AWARE AND HE SAID OK TO TRANSFER PATIENT TO ICU WELL.HOSPITALIST DENISE ROSENBERG MADE AWARE OF TRANSFER.
[2021-10-31] MEDS: ALBUMIN 25% 25 GM in PREMIX 1 EA IV PRN (21:03)
[2021-10-31] MEDS ORDERED: NOREPINEPHRINE 8 MG in IV NS 0.9% 242 ML IV PRN (21:30)
--- NOTE | 2021-10-31 21:30 | NUR ---
TILLER WORKER NOTES REPORT GIVEN TO GILBERT DRY SANDER,WITH ROOM 254
--- NOTE | 2021-10-31 21:38 | NUR ---
PETROLEUM LABORATORY TECHNICIAN NOTES ACCU-CHECK BLOOD SUGAR RE CHECK WENT UP TO 89
--- NOTE | 2021-10-31 21:40 | NUR ---
ELECTRONIC VIDEO GAMES SERVICER NOTES CHEMISTRY WAS ORDERED TO CHECK LATEST H/H PER HD NURSE AND IT WAS 9.2.
[2021-10-31 21:47] LABS: HEMOGLOBIN 9.2 g/dL (11.5-14.8)
--- NOTE | 2021-10-31 22:15 | NUR ---
VACUUM FURNACE OPERATOR NOTES MARION,FAMILY MEMBER MADE AWARE OF TRANSFER.
--- NOTE | 2021-10-31 22:45 | NUR ---
IPHONE DEVELOPER NOTES HD TREATMENT TERMINATED THIS,NOTHING PULLED OUT,ONLY CLEANING PER HD NURSE
[2021-10-31] MEDS ORDERED: NOREPINEPHRINE 8MG/250ML RTU 250 ML IV ONE (22:55)
--- NOTE | 2021-10-31 23:00 | NUR ---
RN FORENSIC NOTES PATIENT WAS TRANSFERRED BY BED VIA ACLS PROTOCOL TO ICU.
--- NOTE | 2021-10-31 23:07 | NUR ---
RN/ICU-PT. FROM FROM [address] [place] [address] FOR LOW BP PER ACLS PROTOCOL.ROUTINE ICU ADMISSION CARE INITIATED.PT. IS AWAKE, ALERT, EXPRESSIVE OF NEEDS IN [place]. BREATHING SPONTANEOUSLY TO ROOM AIR.SATS.-73%. BP-84/48, HR-101/MIN. ST. NO COMPLAINTS NOTED AT GABRIELE TIME.NOTED LFT HIP INCISION INTACT W/ OCCLUSIVE DRESSING, W/ OLD BLOOD STAIN NOTED. AFEBRILE TEMPT. 97.8.
[2021-10-31] MEDS: NOREPINEPHRINE 8 MG in IV NS 0.9% 242 ML IV PRN (23:30)
--- NOTE | 2021-10-31 23:30 | NUR ---
RN/ICU- PT. SATS. REMAINS ON THE 70'S, NOT IN ANY DISTRESS, NRB 12 LITERS ADMINISTERED. WILL CONTINUE TO MONITOR PER PROTOCOL.. BP-79/46, HR-61.WILL START LEVOPHED GTT. TITRATE TO KEEP SBP>90.
[2021-10-31] MEDS: IV 1/2NS 1000 ML 1,000 ML IV PRN (23:52)
[2021-11-01] VITALS (108 sets, daily range): BP systolic 33–156; BP diastolic 21–89
--- NOTE | 2021-11-01 01:00 | NUR ---
RN/ICU-SPOKE TO DAUGHTER MARION REGARDING PT. STATUS, VERBALIZED UNDERSTANDING. WILL COME AND VISIT PT. IN AM.
[2021-11-01 02:11] LABS: CALCIUM, SERUM 9.1 mg/dL (8.5-10.1); CREATININE 4.1 mg/dL (0.6-1.3); POTASSIUM 4.8 mmol/L (3.5-5.1)
[2021-11-01] MEDS: MORPHINE SULFATE INJ 2 MG/ML DISP.SYRIN IV PRN ×2 (03:20→07:35)
--- NOTE | 2021-11-01 03:20 | NUR ---
RN/ICU-PT. C/O SHARP PAIN LEFT HIP INCISION MORPHINE 2 MG SIVP GIVEN WILL REASSESS FOR PRN EFFECTIVENESS.
[2021-11-01 04:25] LABS: IRON, SERUM 65 ug/dl (50-175); TOTAL IRON BINDING CAPACITY 140 ug/dl (250-450)
[2021-11-01] MEDS: HYDROCODONE/APAP 10/325MG TABLET PO PRN ×3 (05:52→20:00)
--- NOTE | 2021-11-01 07:12 | NUR ---
RN OPENING NOTES; RECEIVED PT IN BED SLEEPING IN SUPINE POS. PT A/OX3, PT VIETNAMESE SPEAKING. NO SOB OR DISTRESS NOTED. LHA N#20 NOTED, RUNNING LEVO AT 0.06MCG/HR. ALL SAFETY MEASURES RENDERED, BED LOCKED IN LOWEST POS. SIDE RAILSX2 WITH CALL LIGHT WITHIN REACH. WILL CONTINUE TO MONITOR.
[2021-11-01] MEDS: PANTOPRAZOLE 40 MG TABLET.DR PO SCH (07:18)
[2021-11-01] MEDS: BLOOD SUGAR DIAGNOSTIC 1 EACH STRIP IN SCH ×4 (07:26→21:49)
[2021-11-01] MEDS: INSULIN REGULAR, HUMAN 100 UNIT/ML 3 ML VIAL SQ PRN ×2 (07:27→11:07)
--- NOTE | 2021-11-01 07:27 | NUR ---
RN NOTES; B/S TAKEN WITH RESULT OF 77. NO COVERAGE GIVEN PER SLIDING SCALE. WILL CONTINUE TO MONITOR.
[2021-11-01] MEDS: ENOXAPARIN SODIUM 30 MG/0.3 ML DISP.SYRIN SQ SCH (08:35)
--- NOTE | 2021-11-01 11:07 | NUR ---
RN NOTES; B/S TAKEN WITH RESULT OF 70. NO COVERAGE NEEDED PER SLIDING SCALE. WILL CONTINUE TO MONITOR.
[2021-11-01] MEDS: DEXTROSE 50%-WATER 50 ML DISP.SYRIN IV PRN ×2 (16:44→21:49)
--- NOTE | 2021-11-01 17:05 | NUR ---
RN NOTES; BLOOD SUGAR TAKEN WITH RESULT OF 18. DEXTROSE INJECTION GIVEN. RECHECKED PT B/S AFTER 15 MIN WITH RESULT OF 79. WILL CONTINUE TO MONITOR. PT A/OX3, AND RESPONSIVE.
[2021-11-01] MEDS ORDERED: HEPARIN INFUSION/D5W 500 ML IV PRN (18:30)
--- NOTE | 2021-11-01 18:47 | NUR ---
RN CLOSING NOTES; PT A/OX3, PT IS BANGLADESHI SPEAKING. NO SOB OR DISTRESS NOTED AT THIS TIME. PT ON 02 VIA NC AT 3LPM. TOLERATING WELL SATING AT 100%. ALL MEDICATIONS GIVEN AND TOLERATED WELL. PT HAS NO C/O PAIN AT THIS TIME. PT HAD EPISODES OF HYPOGLYCEMIA. MD NOTIFIED, DEXTROSE INJ GIVEN. B/S INCREASED TO 79. PT KEPT CLEAN, DRY AND COMFORTABLE. ALL SAFETY MEASURES RENDERED, BED LOCKED IN LOWEST POS. SIDE RAILS UP X3, WITH CALL LIGHT WITHIN REACH. WILL ENDORSE TO ASSEMBLER FINGER BUFFS RN. PT IN STABLE CONDITION.
--- NOTE | 2021-11-01 19:00 | NUR ---
RN NOTE RECEIVED PATIENT IN BED, ON LOW CARNEY'S, AO X 4, FAROESE SPEAKING, MARKETING SALES CONSULTANT CARLO ABLE TO HELP WITH TRANSLATION. IN NO S/SX OF ACUTE DISTRESS AT THIS TIME, BREATHING EVEN AND UNLABORED, SATURATION AT 99% ON 3L VIA NC, ST ON THE MONITOR, HR IS 105. NOTED IV SITE AT R WRIST 20G, AND L WRIST 20G, BOTHS PATENT AND FLUSHING WELL, NO S/S OF INFECTION OR INFILTRATION, WITH LEVOPHED INFUSING AT 0.15 MCG/KG/MIN. SAFETY MEASURES IMPLEMENTED. PATIENT BED ALARM IS ON. HEAD OF BED ELEVATED. BED IS LOCKED, IN LOWEST POSITION AND SIDE RAILS UP. CALL LIGHT WITHIN REACH OF THE PATIENT. WILL CONTINUE TO MONITOR AND REASSESS FOR ANY CHANGES.
--- NOTE | 2021-11-01 19:30 | NUR ---
RN NOTE QC CHEMIST KELSY VERIFIED ORDER FOR HEPARIN DRIP WITH DR DAVIS, STATED NO BOLUS TO BE GIVEN. AWAITING APTT RESULT BEFORE STARTING HEPARIN DRIP.
--- NOTE | 2021-11-01 20:03 | NUR ---
RN NOTE PUBLIC RECORDS OFFICER AT BEDSIDE FOR BLOOD DRAW FOR APTT
[2021-11-01] MEDS ORDERED: HEPARIN SODIUM, PORCINE 5000 UNITS/1 ML VIAL SQ SCH (21:00)
--- NOTE | 2021-11-01 21:18 | NUR ---
RN NOTES RECEIVED CRITICAL LAB FROM [facility]; PTT: 59.2 AND INR 4.46. WILL ENDORSE TO PRIMARY RN AND COMMISSION SALES ASSOCIATE
--- NOTE | 2021-11-01 21:45 | NUR ---
RN NOTE ACCUCHECK DONE ON R HAND, BS 14 MG/DL, REPEATED AT L HAND 16 MG/DL. D50% 50 ML ADMINISTERED PER MD ORDER, BS RECHECKED AND RESULTED 89 MG/DL. DR ROSENBERG WAS NOTIFIED, ADVISED HER PT HAS POOR APPETITE; ORDER RECEIVED TO CHANGE SLIDING SCALE FROM ACHS TO Q6H. UTILITY SALES REPRESENTATIVEROSE RODRIGEZ Addendum: 11/02/21 at 0325 by MULU LUCIO RN DR ROSENBERG ALSO ORDERED NaCl 154 mEq in IV D10% x 40 ml/hr. PER MEDICAL SALES ILANA ROSE, NaCl [address] ROSENBERG WAS INFORMED, STATED OK TO START PATIENT ON D10% AT 40 ML/HR FOR NOW. PHARMACY WILL BE NOTIFIED IN AM OF ORDER. UTILITY SALES REPRESENTATIVEROSE RODRIGEZ.
[2021-11-01] MEDS: NOREPINEPHRINE 8 MG in IV NS 0.9% 242 ML IV PRN (21:46)
[2021-11-01] MEDS ORDERED: Sodium Chloride 154 MEQ in IV 10% DEXTROSE 1,000 ML IV PRN (22:30)
--- NOTE | 2021-11-01 23:30 | NUR ---
RN NOTE NOTED O2 SAT AT 85% FROM >95% ON 3LPM VIA NC WHILE PT ASLEEP. PT IS MOUTH BREATHER, O2 CHANGED TO 6LPM VIA SIMPLE MASK BY RT KEIKO. PT TOLERATING WELL, SATURATION NOW AT 96%. WILL CONTINUE TO MONITOR PATIENT.
[2021-11-02] VITALS (99 sets, daily range): BP systolic 46–145; BP diastolic 20–103
[2021-11-02] MEDS: BLOOD SUGAR DIAGNOSTIC 1 EACH STRIP IN SCH ×4 (00:24→17:50)
--- NOTE | 2021-11-02 01:20 | NUR ---
RN NOTE MIDLINE INSERTED BY DR SNIDER MARINE EQUIPMENT PRESERVATION INSPECTOR AT JOSE 18G.
[2021-11-02] MEDS: MORPHINE SULFATE INJ 2 MG/ML DISP.SYRIN IV PRN (01:36)
[2021-11-02] MEDS ORDERED: NOREPINEPHRINE 8MG/250ML RTU 250 ML IV ONE (01:53)
[2021-11-02] MEDS: HYDROCODONE/APAP 10/325MG TABLET PO PRN (02:51)
[2021-11-02] MEDS: NOREPINEPHRINE 8 MG in IV NS 0.9% 242 ML IV PRN ×6 (02:56→22:31)
--- NOTE | 2021-11-02 03:34 | NUR ---
RN NOTE TELEPHONE CALL TO LAB, ADVISED THEM OF ORDER FOR APTT AT 0335, AND PT IS ON HEPARIN DRIP AT [facility]. LAB PERSONNEL ACKNOWLEDGED.
[2021-11-02 03:57] LABS: BASOPHILS # (AUTO) 0.1 K/uL (0.0-0.2); BASOPHILS % (AUTO) 0.5 % (0.0-2.0); EOSINOPHILS % (AUTO) 2.5 % (0.0-6.0); HEMATOCRIT 29 % (33-45); HEMOGLOBIN 7.9 g/dL (11.5-14.8); LYMPHOCYTES # (AUTO) 0.5 K/uL (0.8-4.8); LYMPHOCYTES % (AUTO) 4.4 % (20.0-44.0); MEAN CORPUSCULAR HGB CONC 28 g/dl (31.0-36.0); MEAN CORPUSCULAR VOLUME 116 fL (82-100); MONOCYTES # (AUTO) 0.6 K/uL (0.1-1.30); MONOCYTES % (AUTO) 5.4 % (2.0-12.0); NEUTROPHILS % (AUTO) 87.2 % (43.0-81.0); PLATELET COUNT (AUTO) 205 K/uL (150-450); RED BLOOD CELL COUNT(AUTO) 2.46 MIL/uL (4.0-5.2); WHITE BLOOD COUNT (AUTO) 10.3 K/uL (4.3-11.0)
--- NOTE | 2021-11-02 03:58 | NUR ---
RN NOTE LATE SCAN OF NORCO 10-325 MG 1 TAB, ACTUAL TIME GIVEN @1999, PREMEDICATED PATIENT PRIOR TO ECHO DONE AT BEDSIDE PATIENT NEEDS TO BE TURNED TO L SIDE FOR THE PROCEDURE. DONAVAN SANABRIA AND FIELD SAMPLING TECHNICIAN KELSY WITNESSES
[2021-11-02 04:10] LABS: CALCIUM, SERUM 7.2 mg/dL (8.5-10.1); CARBON DIOXIDE 12 mmol/L (21-32); CREATININE 4.4 mg/dL (0.6-1.3); POTASSIUM 4.1 mmol/L (3.5-5.1); UREA NITROGEN, BLOOD 37 mg/dL (7-18)
--- NOTE | 2021-11-02 04:34 | NUR ---
RN NOTE TELEPHONE CALL FROM [facility] OF LAB, RELAYED CRITICL LAB VALUE OF CL=701, CL=70, AND GLUCOSE >500. ACCUCHECK DONE AT R HAND, RESULTED 31 MG/DL. LAB WAS NOTIFIED, MARICEL AT BEDSIDE FOR REDRAW OF BMP AT [facility], AND CBC, PTT, PT WITH INR AT E. AWAITING RESULT. BIRD CAGE ASSEMBLER KELSY AWARE
[2021-11-02 04:35] LABS: CHLORIDE 70 mmol/L (98-107); SODIUM SERUM 100 mmol/L (136-145)
[2021-11-02 04:36] LABS: GLUCOSE > 500 mg/dL (74-106)
[2021-11-02] MEDS: DEXTROSE 50%-WATER 50 ML DISP.SYRIN IV PRN ×4 (04:44→17:50)
[2021-11-02 05:26] LABS: CALCIUM, SERUM 9.6 mg/dL (8.5-10.1); CREATININE 5.1 mg/dL (0.6-1.3)
--- NOTE | 2021-11-02 05:35 | NUR ---
RN NOTE TELEPHONE CALL FROM LAB RE: CRITICAL LAB- K 6.3, PTT 146.6, INR 9.35. ASSESSED PT, NO ACTIVE BLEEDING NOTED. HEPARIN DRIP WAS STOPPED AND DR ROSENBERG WAS NOTIFIED PER PROTOCOL, ACKNOWLEDGED WITH NO NEW ORDERS. NEPHRO/DR HAINES WAS NOTIFIED OF K LEVEL OF 6.3, ORDERS RECEIVED FOR STAT HD. MIDDLE SCHOOL PRINCIPAL ILANA ROSE TO CALL HD COMPANY. HEAD LOADER KELSY AWARE. WILL CONTINUE TO MONITOR PATIENT
[2021-11-02 05:42] LABS: POTASSIUM 6.3 mmol/L (3.5-5.1)
--- NOTE | 2021-11-02 06:46 | NUR ---
RN NOTE TELEPHONE CALL FROM HD RN, STATED WILL BE HERE IN 30-45 MINUTES. STOCK PREPARER KELSY AWARE.
--- NOTE | 2021-11-02 07:10 | NUR ---
ICU OPENING NOTES RECEIVED PT IN BED, ON 6L O2 VIA SIMPLE MASK. NO SOB OR ANY S/SX OF ACUTE DISTRESS AT THIS TIME. O2 SATURATION @96%. IV SITE ON JOSE ML, L WRIST #20, L HAND #22 ALL INTACT, PATENT AND FLUSHED. WITH LEVOPHED INFUSING @0.4 MCG/KG/MIN. D10 @40ML/HR. SAFETY MEASURES IMPLEMENTED. CALL LIGHT WITHIN REACH. BED ALARM ON. HOB ELEVATED. BED LOCKED AND IN LOWEST POSITION WITH SIDE RAILS UP X3. WILL CONTINUE TO MONITOR.
--- NOTE | 2021-11-02 07:22 | NUR ---
RN NOTE REPORT GIVEN TO GERALD ROSE FOR CONTINUATION OF CARE.
[2021-11-02] MEDS ORDERED: Sodium Chloride 154 MEQ in IV 10% DEXTROSE 1,000 ML IV SCH (07:37)
--- NOTE | 2021-11-02 08:15 | NUR ---
RN NOTES PT STARTED HD. VS STABLE.
[2021-11-02] MEDS: PANTOPRAZOLE 40 MG TABLET.DR PO SCH (08:32)
[2021-11-02] MEDS: ALBUMIN 25% 25 GM in PREMIX 1 EA IV PRN (08:33)
[2021-11-02] MEDS: Sodium Chloride 154 MEQ in IV 10% DEXTROSE 1,000 ML IV SCH (08:40)
[2021-11-02 10:05] LABS: BAND % (MANUAL) 20 % (0.0-5.0); LYMPHOCYTES % (MANUAL) 3 % (16-48); MONOCYTES % (MANUAL) 6 % (0-11.0); NEUTROPHILS % (MANUAL) 71 (42-76)
--- NOTE | 2021-11-02 10:30 | NUR ---
RN NOTES HD DONE. PT WAS BROUGHT TO CT PER PROTOCOL. VS STABLE. NOT IN DISTRESS. BROUGHT BACK TO ROOM IN STABLE CONDITION.
[2021-11-02] MEDS: INSULIN REGULAR, HUMAN 100 UNIT/ML 3 ML VIAL SQ PRN (12:46)
--- NOTE | 2021-11-02 14:33 | NUR ---
RN NOTES DR. NEGRETE NOTIFIED ON PT 95.4 AND INR 10. NO NEW ORDERS MADE.
--- NOTE | 2021-11-02 16:00 | NUR ---
RN NOTES HR AT 140s. ST ON THE MONITOR. DR. DAVIS NOTIFIED. STAT EKG ORDERED AND CARRIED OUT.
[2021-11-02] MEDS ORDERED: IV NS 0.9% 500 ML IV ONE (18:00)
[2021-11-02] MEDS ORDERED: IV NS 0.9% 500 ML IV STA (19:13)
[2021-11-02] MEDS ORDERED: AMIODARONE 450 MG in IV D5W 241 ML IV PRN (19:30)
[2021-11-02] MEDS ORDERED: AMIODARONE 150 MG in IV D5W 100 ML IV ONE (19:30)
--- NOTE | 2021-11-02 19:35 | NUR ---
HOME SERVICE DIRECTOR NOTES RECEIVED PT FOR CONTINUITY OF CARE. PATIENT A/OX0 IN NO S/SX OF ACUTE DISTRESS AT THIS TIME; CURRENTLY ON 10L OF 02 VIA SIMPLE MASK; WITH 02 SAT >95% AT THIS TIME. NOTED IV SITE ON L WRIST #20, L HAND #22 AND R UA MIDLINE#18 ; PATENT, INTACT AND FLUSHING WELL; NO S/S OF INFECTION OR INFILTRATION. WITH IV FLUID RUNNING ORDERED. ALSO HAS RUNNING LEVO RECEIVED @.08MCG/KG/MIN MONITORED AND ADJUSTED PER PROTOCOL. WILL ENSURE SAFETY MEASURES WITHIN THE SHIFT. PATIENT BED ALARM IS ON. HEAD OF BED ELEVATED. BED IS LOCKED, IN LOWEST POSITION AND SIDE RAILS UP. CALL LIGHT WITHIN REACH OF THE PATIENT. APPLICABLE ISOLATION PRECAUTIONS IN PLACE. WILL CONTINUE TO MONITOR AND REASSESS FOR ANY CHANGES AND WILL CARRY OUT ANY ONGOING AND ACTIVE MD ORDER.
--- NOTE | 2021-11-02 19:35 | NUR ---
RN CLOSING NOTES PT RESTING IN BED. ON SIMPLE MASK 10L TOLERATING WELL. KEPT CLEAN AND COMFORTABLE. ALL DUE MEDS GIVEN. SAFETY MEASURES IN PLACE. ENDORSED TO NIGHT RN FOR ANDRES.
--- NOTE | 2021-11-02 19:40 | NUR ---
RN NOTES ORDER GIVEN BY DR. DAVIS, SECOND PRESSOR (NEOSYNEPHRINE DRIP) AND MAINTAIN SBP >90. ALSO FOLLOWED UP WITH BMP RESULT, ADVISED HIM THAT NO RESULT YET BUT WILL F/U WITH LAB. WILL CARRY OUT MD ORDER AND WILL CONTINUE TO MONITOR. MARY ELLEN ROSE MADE AWARE. Addendum: 11/02/21 at 2007 by ASIF PIZANO RN ALANNA Monterroso NP) NOTIFIED AND LOOPED IN REGARDING PT CURRENT STATUS AND DR. DAVIS'S ORDER. ACKNOWLEDGED. Addendum: 11/02/21 at 2052 by ASIF PIZANO RN 2049- INFORMED DR. DAVIS REGARDING BMP RESULT; POTASSIUM LEVEL AT 3.2 PREVIOSLY AT 6.3. NO NEW ORDERS PER MD. WILL CONTINUE TO MONITOR AND ASSESS. MARY ELLEN ROSE MADE AWARE.
--- NOTE | 2021-11-02 19:45 | NUR ---
RN NOTES CALLED LAB AND F/U ON THE BMP ORDERED BY DR. DAVIS; SPOKE WITH KELSEY AND SAID CONTACT CENTER PROFESSIONAL ON THE WAY TO DO IT. RN ACKNOWLEDGED.
--- NOTE | 2021-11-02 20:30 | NUR ---
RN NOTES STARTED AMIO DRIP @1MG FOR 6 HOURS THEN WILL SWITCH TO 0.5MG TO RUN FOR 18 HOURS. [employer] ALL SOURCE INTELLIGENCE MADE AWARE. WILL CONTINUE TO MONITOR AND ASSESS THROUGHOUT THE SHIFT.
[2021-11-02 20:39] LABS: CALCIUM, SERUM 6.5 mg/dL (8.5-10.1); CREATININE 2.4 mg/dL (0.6-1.3); POTASSIUM 3.2 mmol/L (3.5-5.1)
--- NOTE | 2021-11-02 22:00 | NUR ---
RN NOTES MIKI (DAUGHTER OF PT ) CALLED PROVIDED GENERAL UPDATES. ADVISED THAT WILL PROVIDE CALL IF THERE'S ANY SIGNIFICANT CHANGES ABOUT PT'S CONDITION. ALSO ADVISED FAMILY IF THEY HAVE SPECIFIC QUESTIONS ABOUT TX PLAN, CALL IN THE AM TO GET IN TOUCH WITH MD. FAMILY ACKNOWLEDGED. USER SUPPORT SPECIALIST MADE AWARE.
--- NOTE | 2021-11-02 22:56 | NUR ---
RN NOTES NOTED PT'S O2 SAT IN & OUT OF RANGE; PT GASPING AND LABORED. CURRENTLY ON 10L VIA SIMPLE MASK. NOTIFIED ALANNA LYONS (AISHWARYA Monterroso NP) SECURED ORDER FOR STAT ABG. WILL INFORM RT TEAM. Addendum: 11/02/21 at 2341 by ASIF PIZANO RN 2335- ABG RESULT OUT; INFORMED AND HANDED RESULT TO ALANNA LYONS (RONDA WALKER)
[2021-11-02 23:39] LABS: ABG BASE EXCESS -17.2 mmol/L; ABG OXYGEN SATURATION 99.6 % (92.0-98.5); ABG PCO2 27.9 mmHg (35.0-45.0); ABG PH 7.168 (7.350-7.450); AaDO2 245.1 mmHg; COHb 3.9 % (0.5-1.5); O2Hb 95.7 % (94.0-97.0); SITE, ABG Right Brachial; VENT MODE, BG Simple Mask
[2021-11-02] MEDS: PHENYLEPHRINE 100 MG in IV NS 0.9% 240 ML IV PRN (23:51)
[2021-11-03] VITALS (73 sets, daily range): BP systolic 35–150; BP diastolic 17–81
--- NOTE | 2021-11-03 00:30 | NUR ---
RN NOTES NOTED ALANNA LYONS (DENISE Monterroso NP) ORDERED STAT CT PULMO ANGIO. CALLED ALANNA LYONS, ADVISED THAT PT IS STILL UNSTABLE AT THIS MOMENT BP IS STILL RUNNING LOW, ONCE STABLE WILL CALL RADIOLOGY TO EXECUTE PROCEDURE. ALANNA LYONS ACKNOWLEDGED. RADIOLOGY INFORMED. STATISTICIAN MATHEMATICAL MADE AWARE.
[2021-11-03] MEDS: BLOOD SUGAR DIAGNOSTIC 1 EACH STRIP IN SCH ×4 (00:40→17:50)
[2021-11-03] MEDS: DEXTROSE 50%-WATER 50 ML DISP.SYRIN IV PRN ×4 (00:42→14:30)
[2021-11-03] MEDS: INSULIN REGULAR, HUMAN 100 UNIT/ML 3 ML VIAL SQ PRN (00:42)
[2021-11-03 01:24] LABS: BASOPHILS % (AUTO) 0.3 % (0.0-2.0); EOSINOPHILS % (AUTO) 2.7 % (0.0-6.0); HEMATOCRIT 25 % (33-45); HEMOGLOBIN 7.8 g/dL (11.5-14.8); LYMPHOCYTES # (AUTO) 0.8 K/uL (0.8-4.8); MEAN CORPUSCULAR HGB CONC 31 g/dl (31.0-36.0); MEAN CORPUSCULAR VOLUME 102 fL (82-100); MONOCYTES # (AUTO) 0.2 K/uL (0.1-1.30); MONOCYTES % (AUTO) 1.5 % (2.0-12.0); NEUTROPHILS # (AUTO) 8.7 K/uL (1.8-8.9); NEUTROPHILS % (AUTO) 87.5 % (43.0-81.0); PLATELET COUNT (AUTO) 124 K/uL (150-450); RED BLOOD CELL COUNT(AUTO) 2.44 MIL/uL (4.0-5.2)
[2021-11-03] MEDS: NOREPINEPHRINE 8 MG in IV NS 0.9% 242 ML IV PRN ×4 (01:36→09:49)
[2021-11-03 01:53] LABS: ALANINE AMINOTRANSFERASE 679 U/L (12-78); ALBUMIN 2.4 g/dL (3.4-5.0); ALKALINE PHOSPHATASE 318 U/L (46-116); BILIRUBIN,DIRECT 1.5 mg/dL (0.0-0.2); BILIRUBIN,TOTAL 2.4 mg/dL (0.2-1.0); TOTAL PROTEIN, SERUM 4.9 g/dL (6.4-8.2)
--- NOTE | 2021-11-03 01:57 | NUR ---
RN NOTES PT'S SBP IS STILL <90 AND TWO PRESSORS RUNNING LEVO MAX AT 1 AND CATHERINE CURRENTLY AT 2MCG. HR IS AT 60S AMIO RUNNING, NOTIFIED ALANNA LYONS AND PROVIDED STATUS UPDATE. ADVISED THAT PT MIGHT NOT BE ABLE TO BE SENT TO RADIOLOGY FOR CT ANGIO DUE TO CONDITION UNSTABLE ALANNA LYONS ACKNOWLEDGED. ALANNA LYONS ALSO ORDERED TO STOP AND HOLD ADMIN OF AMNIO AT THIS TIME. RN ACKNOWLEDGED.WILL CONTINUE TO MONITOR RUSH SEATER MADE AWARE.
--- NOTE | 2021-11-03 02:00 | NUR ---
RN NOTES CALLED FAMILY TO GIVE STATUS UPDATE ( PTUNSTABLE), ADVISED TO COME. FAMILY ACKNOWLEDGED. DREDGE LEVER OPERATOR MADE AWARE.
--- NOTE | 2021-11-03 02:00 | NUR ---
RN NOTES NOTIFIED ONCSHAWNEE LYONS (DENISE Monterroso NP) REGARDING PT CONDITION UPDATE, HR GOING LOW; 40-50s. BSG RE ASSESS 41, MD ORDERED: ATROPINE 0.5MG IV ONCE, 1 AMP OF D50 AND 1 AMP BICARB AND EPI DRIP. PROJECT ESTIMATOR MADE AWARE. WILL CARRY OUT MD ORDER.
[2021-11-03 02:21] LABS: ASPARTATE AMINOTRANSFERASE > 1000 U/L (15-37)
[2021-11-03] MEDS ORDERED: EPINEPHRINE (1:1000) 1 MG/ML AMPUL ONE ×2 (02:23→02:25)
[2021-11-03] MEDS ORDERED: SODIUM BICARBONATE SYR 50 MEQ/50 ML DISP.SYRIN IV ONE ×2 (02:30)
[2021-11-03] MEDS ORDERED: Sodium Bicarbonate 150 MEQ in IV NS 0.9% 1,000 ML IV PRN (02:30)
[2021-11-03] MEDS ORDERED: DEXTROSE 50%-WATER 50 ML DISP.SYRIN IVP ONE (02:30)
[2021-11-03] MEDS ORDERED: ATROPINE SULFATE 1 MG/10 ML DISP.SYRIN IV ONE (02:30)
[2021-11-03] MEDS ORDERED: ATROPINE SULFATE 1 MG/10 ML DISP.SYRIN IV PRN (02:30)
[2021-11-03] MEDS ORDERED: EPINEPHRINE (1:1000) 5 MG in IV NS 0.9% 245 ML IV PRN ×2 (02:30→03:00)
[2021-11-03] MEDS ORDERED: IV NS 0.9% 500 ML IV ONE ×2 (03:00→11:00)
[2021-11-03 03:03] LABS: ABG BASE EXCESS -17.5 mmol/L; ABG PCO2 49.3 mmHg (35.0-45.0); ABG PH 7.012 (7.350-7.450); ABG PO2 118.4 mmHg (75.0-100.0); AaDO2 255.2 mmHg; COHb 4.4 % (0.5-1.5); MetHb 0.1 % (0.0-1.5); O2Hb 92.6 % (94.0-97.0); SITE, ABG Right Brachial; VENT MODE, BG Simple Mask
--- NOTE | 2021-11-03 03:13 | NUR ---
RT NOTE Pt rec'd on Simple mask @ 10LPM. Pt showed tachypnea, accessory muscle usage and altered mental status. Stat ABG was taken and critical results were given to MD. Pt orally intubated via ETT sz #7.0 secured @ 24CM at the lipline. color change noted via CO2 detector. Clear bilateral breath sounds heard on auscultation. Pt placed on [facility] vent settings as charted per md orders. Alarms are set and audible. Ambu bag @ bedside. Will continue to monitor closely. Addendum: 11/03/21 at 0351 by EARL OLSEN RT Amended: Links added.
--- NOTE | 2021-11-03 03:20 | NUR ---
RN NOTES INTUBATION REQUESTED BY FAMILY AFTER SPEAKING WITH ALANNA LYONS (DENISE Monterroso,SOLAR SYSTEMS DESIGNER) DR. JACOBS AT BEDSIDE TO PERFORM PROCEDURE. UMU RT AND EARL RT AT BEDSIDE TO ASSIST. @0320 ETOMIDATE 20MG ADMINISTERED IVP BY ED HARDWARE TECHNICIAN. @0322 SUCCINYLCHOLINE 150MG ADMINISTERED IVP BY ED HARDWARE TECHNICIAN.@ 0325 PT SUCCESSFULLY INTUBATED BY DR. JACOBS SIZE 7 ETT 22CM AT THE LIP. CHEST XRAY ORDERED. PT TOLERATED PROCEDURE WELL.
[2021-11-03] MEDS ORDERED: ZOSYN IVPB 2.25 G in IV D5W 50ml IV ONE (03:30)
[2021-11-03] MEDS ORDERED: VANCOMYCIN HCL 0.75 GM in IV D5W 250 ML IV ONE (03:30)
[2021-11-03] MEDS ORDERED: IV NS 0.9% 1,000 ML IV ONE (03:30)
--- NOTE | 2021-11-03 03:45 | NUR ---
RN NOTES FACILITATED NGT INSERTION L NARE, PLACEMENT VERIFIED VIA AUSCULTATION. CXR ORDERED TO ALSO CONFIRM PLACEMENT. NOTED COFFEE GROUND OUTPUT ; NOTIFIED ONCALL (DENISE Monterroso NP) CONNECTED TO LOW INTERMITTENT SUCTION PER MD. RN ACKNOWLEDGED. PREPRESS SPECIALIST MADE AWARE.
[2021-11-03] MEDS ORDERED: PIPERACILLIN /TAZOBACTAM 2.25 G VIAL IV ONE (04:05)
[2021-11-03] MEDS ORDERED: VANCOMYCIN 1 GM VIAL ONE (04:05)
[2021-11-03] MEDS ORDERED: NOREPINEPHRINE 8MG/250ML RTU 250 ML IV ONE (04:05)
[2021-11-03 05:06] LABS: BASOPHILS % (AUTO) 0.2 % (0.0-2.0); EOSINOPHILS % (AUTO) 2.7 % (0.0-6.0); HEMATOCRIT 23 % (33-45); HEMOGLOBIN 7.1 g/dL (11.5-14.8); LYMPHOCYTES # (AUTO) 1.1 K/uL (0.8-4.8); LYMPHOCYTES % (AUTO) 13.5 % (20.0-44.0); MEAN CORPUSCULAR HGB CONC 31 g/dl (31.0-36.0); MEAN CORPUSCULAR VOLUME 104 fL (82-100); MONOCYTES # (AUTO) 0.3 K/uL (0.1-1.30); MONOCYTES % (AUTO) 3.8 % (2.0-12.0); NEUTROPHILS # (AUTO) 6.6 K/uL (1.8-8.9); NEUTROPHILS % (AUTO) 79.8 % (43.0-81.0); PLATELET COUNT (AUTO) 98 K/uL (150-450); RED BLOOD CELL COUNT(AUTO) 2.23 MIL/uL (4.0-5.2); WHITE BLOOD COUNT (AUTO) 8.3 K/uL (4.3-11.0)
[2021-11-03 05:33] LABS: CALCIUM, SERUM 9.6 mg/dL (8.5-10.1); CREATININE 3.3 mg/dL (0.6-1.3); POTASSIUM 4.7 mmol/L (3.5-5.1)
[2021-11-03 05:44] LABS: BILIRUBIN,TOTAL 2.4 mg/dL (0.2-1.0); TOTAL PROTEIN, SERUM 4.2 g/dL (6.4-8.2)
--- NOTE | 2021-11-03 05:51 | NUR ---
RN NOTES NA BICARB IN D5W HASN'T BEEN STARTED, NOT AVAILABLE AT THIS TIME PER FLASK CLEANER AND NEED TO INFORM PHARMACY. RN ACKNOWLEDGED.
[2021-11-03 05:52] LABS: BILIRUBIN,DIRECT 1.5 mg/dL (0.0-0.2); BILIRUBIN,TOTAL 2.4 mg/dL (0.2-1.0); TOTAL PROTEIN, SERUM 4.2 g/dL (6.4-8.2)
--- NOTE | 2021-11-03 06:14 | NUR ---
RN NOTES INFORMED ALANNA LYONS ( DENISE Monterroso NP) REGARDING PT'S STATUS UPDATE, CURRENT V/S, DRIPS AND VENT SETTINGS, BP AND HR WNL BEING SUPPORTED BY LEVO, CATHERINE AND EPI. ALSO INFORMED ABOUT 02 SAT OF PT STILL BETWEEN 60-70% SINCE THE TIME OF INTUBATION. ALSO ADVISE ABOUT LACTIC ACID LEVEL @15.6. CHIEF OF STAFF DOCTOR MADE AWARE. ALANNA LYONS ORDERED REPEAT ABG AFTER DISCUSSION OF VENT SETTING CHANGES WITH RT AND ALANNA LYONS. CHIEF OF STAFF DOCTOR MADE AWARE.
--- NOTE | 2021-11-03 07:00 | NUR ---
ICU OPENING NOTES RECEIVED PT INTUBATED, ETT 05/19 VENT SETTINGS: AC 24, TV 500, FIO2 100%. TOLERATING VENT SETTINGS WELL. NO SOB OR ANY S/SX OF ACUTE DISTRESS AT THIS TIME. IV SITE ON JOSE ML, L WRIST #20, L HAND #22 ALL INTACT, PATENT AND FLUSHED. WITH LEVO @1MCG/KG/MIN, D10 + NaCl @40ML/HR, BICARB IN D5 @75ML/HR, CATHERINE @3MCG/KG/MIN, EPI @0.2. SAFETY MEASURES IMPLEMENTED. CALL LIGHT WITHIN REACH. BED ALARM ON. HOB ELEVATED. BED LOCKED AND IN LOWEST POSITION WITH SIDE RAILS UP X3. WILL CONTINUE TO MONITOR.
--- NOTE | 2021-11-03 07:02 | NUR ---
CHIEF MATE CLOSING NOTE: PATIENT REMAINS IN ROOM ON [facility] VENT; SETTINGS PRESCRIBED;WITH O2 SATURATING @ >60% SP02. SAFETY MEASURES IMPLEMENTED, BED IN LOWEST POSITION, LOCKED, SIDE RAILS UP, CALL LIGHT WITHIN REACH. ALL NEEDS AND ORDERS ADDRESSED DURING THE SHIFT. IV ACCESS MAINTAINED INTACT, SECURED AND FLUSHING WELL. ALL DUE MEDS GIVEN ORDERED & SCHEDULED ; PATIENT TOLERATED WELL. STILL WITH ONGOING DRIP FOLLOWS: LEVO DRIP @1MCG/KG/MIN , CATHERINE@3MCG/KG/MIN, EPI@0.2MCG/KG/MIN ALL RUNNING AND MONITORED PER PROTOCOL PATIENT KEPT CLEAN AND COMFORTABLE WITHIN THE SHIFT. PATIENT ENDORSED TO INCOMING SHIFT RN WITH STABLE VITAL SIGN AND FOR CONTINUITY OF CARE.
[2021-11-03] MEDS: Sodium Bicarbonate 150 MEQ in IV D5W 1,000 ML IV PRN ×3 (07:06→19:35)
[2021-11-03] MEDS: EPINEPHRINE (1:1000) 10 MG in IV NS 0.9% 240 ML IV PRN ×4 (07:14→21:22)
[2021-11-03] MEDS: PANTOPRAZOLE 40 MG TABLET.DR PO SCH (07:30)
[2021-11-03] MEDS ORDERED: ETOMIDATE 2 MG/ML VIAL IV ONE (09:23)
[2021-11-03] MEDS ORDERED: SUCCINYLCHOLINE CHLORIDE 20 MG/ML VIAL IV ONE (09:23)
[2021-11-03] MEDS: Sodium Chloride 154 MEQ in IV 10% DEXTROSE 1,000 ML IV SCH (09:48)
[2021-11-03 10:04] LABS: ABG BASE EXCESS -19.2 mmol/L; ABG OXYGEN SATURATION 99.8 % (92.0-98.5); ABG PCO2 21.6 mmHg (35.0-45.0); ABG PH 7.167 (7.350-7.450); ABG PO2 339.2 mmHg (75.0-100.0); AaDO2 352.2 mmHg; COHb 5.2 % (0.5-1.5); O2Hb 94.6 % (94.0-97.0); PEEP,BG 0 cm H2O; SITE, ABG Right Femoral; VENT MODE, BG AC 100; VT, ABG 500 mL
[2021-11-03] MEDS ORDERED: NOREPINEPHRINE 32 MG in IV NS 0.9% 218 ML IV PRN (11:00)
[2021-11-03] MEDS: HYDROCORTISONE SOD SUCCINATE 100 MG/2 ML VIAL IV SCH ×3 (11:03→21:09)
[2021-11-03] MEDS: PHENYLEPHRINE 100 MG in IV NS 0.9% 240 ML IV PRN (11:25)
[2021-11-03] MEDS: NOREPINEPHRINE 32 MG in IV NS 0.9% 218 ML IV PRN ×2 (11:27→21:40)
[2021-11-03] MEDS: VASOPRESSIN INJ 40 UNIT in IV NS 0.9% 38 ML IV PRN ×2 (12:25→17:41)
--- NOTE | 2021-11-03 13:30 | NUR ---
RN NOTES CODE STATUS CHANGED TO DNR PER FAMILY'S DECISION. MD MADE AWARE.
[2021-11-03] MEDS ORDERED: PIPERACILLIN /TAZOBACTAM 2.25 G in IV D5W 50 ML IV SCH (16:00)
[2021-11-03 17:37] LABS: BAND % (MANUAL) 13 % (0.0-5.0); LYMPHOCYTES % (MANUAL) 16 % (16-48); MONOCYTES % (MANUAL) 9 % (0-11.0); MYELOCYTES % 5 % (0-0); NEUTROPHILS % (MANUAL) 57 (42-76)
--- NOTE | 2021-11-03 19:16 | NUR ---
CLOSING NOTES PT INTUBATED, TOLERATING VENT SETTINGS WELL. NO SOB OR ANY S/SX OF ACUTE DISTRESS AT THIS TIME. LEVO 32 @1MCG/KG/MIN, D10 + NaCl @40ML/HR, BICARB IN D5 @120ML/HR, CATHERINE @3MCG/KG/MIN, EPI @1.2, VASO @0.04. SAFETY MEASURES IMPLEMENTED. CALL LIGHT WITHIN REACH. BED ALARM ON. HOB ELEVATED. BED LOCKED AND IN LOWEST POSITION WITH SIDE RAILS UP X3. ENDORSED TO NIGHT RN FOR ANDRES.
--- NOTE | 2021-11-03 19:35 | NUR ---
LIFT ELECTRICIAN NOTES RECEIVED PT FOR CONTINUITY OF CARE. PATIENT CRITICALLY UNSTABLE, CURRENTLY ON MECH WITH SETTING PRESCRIBED; 02 SAT UNAPPRECIATED; IN AND OUT OF RANGE PER BED MONITOR AT THIS TIME. CURRENTLY WITH DRIPS FOLLOWS: LEVO 32@1MCG/KG/MIN, D10 + NaCl @40ML/HR, BICARB IN D5 @120ML/HR, CATHERINE @3MCG/KG/MIN, EPI @1.2, VASO @0.04 ALL MONITORED PER PROTOCOL. WILL ENSURE SAFETY MEASURES WITHIN THE SHIFT. PATIENT BED ALARM IS ON. HEAD OF BED ELEVATED. BED IS LOCKED, IN LOWEST POSITION AND SIDE RAILS UP. CALL LIGHT WITHIN REACH OF THE PATIENT. APPLICABLE ISOLATION PRECAUTIONS IN PLACE. WILL CONTINUE TO MONITOR AND REASSESS FOR ANY CHANGES AND WILL CARRY OUT ANY ONGOING AND ACTIVE MD ORDER.
--- NOTE | 2021-11-03 23:30 | NUR ---
RN NOTES NOTIFIED BY MT OF ASYSTOLE ON THE MONITOR AT 2219, WENT TO CHECK PT. PULSE NOT APPRECIATED; BOTH WITH PALPATION WITH AUSCULATION AND DOPPLER. PRONOUNCED AT 2224 WITH ANOTHER RN SOBEIDA ADORNO RN. ALL TREATMENTS TURNED OFF AND DISCONTINUED. ALANNA LYONS (AISHWARYA Monterroso NP ) NOTIFIED AND ACKNOWLEDGED. NSG MESSAGE CLERK AND ADMITTING NOTIFIED & ACKNOWLEDGED. PROVIDED SAFE AND QUIET TIME FOR PT'S FAMILY. POST MORTEM RENDERED AFTER. ALL BELONGINGS ACCOUNTED AND SENT TO HOME WITH FAMILY. @2300 CALLED DEPT OF INSURANCE VERIFIER-MOTION PICTURE PROJECTIONIST AND SPOKE WITH Zac AVINA WHO MENTIONED THIS IS A CORONERS SIGN OUT WITH CASE # [id number]; THEY'LL BE GETTING IN TOUCH WITH PT'S FAMILY AND MORTUARY FOR CERT SIGNATURE. ALSO CALLED ONCE [facility] ([id number])TO REPORT PT'S SPOKE WITH AMARIS WITH REF: [id number]. CERTIFIED SHORTHAND REPORTER MADE AND WELL AWARE.
[2021-11-04] MEDS ORDERED: VANCOMYCIN 500 MG in IV D5W 100 ML IV PRN (12:00)
== END 2021-11-03 22:25 | DRG 323 ==
LOC: ER 00:46 → TRANSITION 04:14 → MED 08:17 → TELE 10-30 21:40 → ICU 10-31 23:04 → UNDODISIN 11-04 00:42
PROVIDERS: ADMIT Hospitalist; ATTEND Internal Medicine
PROC: 5A1D70Z Performance of Urinary Filtration, Intermittent, Less than 6 Hours Per Day (ICD-10-PCS; 2021-10-24)
PROC: 0SRS0J9 Replacement of Left Hip Joint, Femoral Surface with Synthetic Substitute, Cemented, Open Approach (ICD-10-PCS; principal; 2021-10-30)
PROC: 05HB33Z Insertion of Infusion Device into Right Basilic Vein, Percutaneous Approach (ICD-10-PCS; 2021-11-02)
PROC: B54MZZA Ultrasonography of Right Upper Extremity Veins, Guidance (ICD-10-PCS; 2021-11-02)
PROC: 03HB33Z Insertion of Infusion Device into Right Radial Artery, Percutaneous Approach (ICD-10-PCS; 2021-11-03)
PROC: 05H533Z Insertion of Infusion Device into Right Subclavian Vein, Percutaneous Approach (ICD-10-PCS; 2021-11-03)
PROC: B546ZZA Ultrasonography of Right Subclavian Vein, Guidance (ICD-10-PCS; 2021-11-03)
PROC: 0BH18EZ Insertion of Endotracheal Airway into Trachea, Via Natural or Artificial Opening Endoscopic (ICD-10-PCS; 2021-11-03)
PROC: 5A1935Z Respiratory Ventilation, Less than 24 Consecutive Hours (ICD-10-PCS; 2021-11-03)
DX: S72.032A Displaced midcervical fracture of left femur, initial encounter for closed fracture (principal); J96.01 Acute respiratory failure with hypoxia; K72.00 Acute and subacute hepatic failure without coma; G93.41 Metabolic encephalopathy; D68.9 Coagulation defect, unspecified; R57.9 Shock, unspecified; I82.431 Acute embolism and thrombosis of right popliteal vein; E11.649 Type 2 diabetes mellitus with hypoglycemia without coma; I12.0 Hypertensive chronic kidney disease with stage 5 chronic kidney disease or end stage renal disease; I21.A1 Myocardial infarction type 2; I47.1 Supraventricular tachycardia; D64.9 Anemia, unspecified; E11.22 Type 2 diabetes mellitus with diabetic chronic kidney disease; E83.39 Other disorders of phosphorus metabolism; E87.5 Hyperkalemia; Z99.2 Dependence on renal dialysis; N18.6 End stage renal disease; I45.10 Unspecified right bundle-branch block; K21.9 Gastro-esophageal reflux disease without esophagitis; Z20.822 Contact with and (suspected) exposure to COVID-19; W01.0XXA Fall on same level from slipping, tripping and stumbling without subsequent striking against object, initial encounter; Y93.9 Activity, unspecified; Y92.009 Unspecified place in unspecified non-institutional (private) residence as the place of occurrence of the external cause; M85.80 Other specified disorders of bone density and structure, unspecified site; I35.0 Nonrheumatic aortic (valve) stenosis
CPT/HCPCS: 31720; 36415; 36600; 70450-TC; 71045-TC; 73020; 73502; 73552; 80048-TC; 80053-TC; 80076-TC; 82140-TC; 82533; 82728-TC; 82803-TC; 82947-TC; 82962-TC; 83540-TC; 83605-TC; 83735-TC; 84100-TC; 84484-TC; 85025-TC; 85027-TC; 85610-TC; 85730-TC; 86706; 86850-TC; 87040-TC; 87081-TC; 87340; 88305-TC; 88311-TC; 90935-TC; 93307-TC; 93970-TC; 93979-TC; 94002-TC; 94799-TC; 95819-TC; A4216; A4217; A6209; A6403; C1713; C1776; C9113; G0378; J0171; J0282; J0330; J0690; J0885; J1170; J1644; J1650; J1720; J1815; J2250; J2270; J2370; J2405; J2543; J2704; J2765; J3010; J3370; J3490; J7030; J7040; J7050; J7060; J7070; P9047